=== PATIENT | female | born 1975 | race Hispanic/Latino ===

== ENCOUNTER 2021-03-02 18:52 | Emergency (ER) | payer BC ==
[~2021-03-02] VITALS: Ht 160 cm; Wt 76.3 kg
[2021-03-02 20:11] LABS: URINE BILIRUBIN - DIPSTICK NEGATIVE (NEGATIVE); URINE BLOOD DIPSTICK NEGATIVE (NEGATIVE); URINE COLOR YELLOW; URINE GLUCOSE - DIPSTICK NEGATIVE (NEGATIVE); URINE KETONE NEGATIVE (NEGATIVE); URINE LEUK ESTERASE NEGATIVE (NEGATIVE); URINE PROTEIN - DIPSTICK NEGATIVE (NEG-TRACE); URINE SPECIFIC GRAVITY 1.025
[2021-03-02 20:15] LABS: HEMATOCRIT 36.7 % (37.0-47.0); HEMOGLOBIN 12.1 g/dl (12.0-16.0); IMMATURE GRANULOCYTES 0.1 % (0.0-5.0); MEAN CELL VOLUME 89.5 fL CALC (80.0-100.0); MEAN CORPUSCULAR HGB 29.5 pG CALC (26.0-32.0); NEUT# 5.99 thou/uL (2.00-7.15); RED BLOOD COUNT 4.1 mill/uL (4.20-5.60); RED CELL DISTRI WIDTH 13.2 % (11.5-15.5)
[2021-03-02 20:27] LABS: URINE NITRITE - DIPSTICK NEGATIVE (Negative)
[2021-03-02 20:33] LABS: ALKALINE PHOSPHATASE 85 u/l (38-126); AMYLASE 86 u/l (30-110); ANION GAP 9 (6-22 (CALC)); BILIRUBIN, TOTAL 0.6 mg/dL (0.0-1.4); BUN 12 mg/dL (7-17); BUN/CREATININE RATIO 17 (12-20 (CALC)); CARBON DIOXIDE 28 mmol/l (22-30); CHLORIDE 104 mmol/l (95-108); CREATININE 0.7 mg/dL (0.5-1.0); GFR > 60 ML/MIN (>=60 (CALC)); GFR FOR AFR.AMER. > 60 ML/MIN (>=60 (CALC)); POTASSIUM 4.5 mmol/l (3.5-5.1); SGOT/AST 47 u/l (14-36); SODIUM 138 mmol/l (137-146); TOTAL PROTEIN 7.4 g/dL (6.3-8.2)
[2021-03-03] MEDS ORDERED: ULTRAM50 M1 PO (00:59)
[2021-03-03 01:00] VITALS: BP 117/60
== END 2021-03-03 01:18 | disposition home or self-care (01) | DRG 392 ==
LOC: ED 18:52
PROVIDERS: Emergency Medicine
DX: R10.2 Pelvic and perineal pain (principal); N83.202 Unspecified ovarian cyst, left side; N83.201 Unspecified ovarian cyst, right side
CPT/HCPCS: Q9967

== ENCOUNTER 2021-11-27 21:22 | Emergency (ER) | payer BC ==
[2021-11-27] VITALS (7 sets, daily range): BP systolic 72–153; BP diastolic 50–82
[~2021-11-27] VITALS: Ht 160 cm; Wt 70.9 kg
[~2021-11-27 21:22] MED LIST: ULTRAM50 M1 PO
[2021-11-27] MEDS ORDERED: TESSALON PERLE100 MG (21:31)
[2021-11-27 22:04] LABS: HEMATOCRIT 36.7 % (37.0-47.0); HEMOGLOBIN 12.2 g/dl (12.0-16.0); IMMATURE GRANULOCYTES 0.2 % (0.0-5.0); MEAN CELL VOLUME 85.5 fL CALC (80.0-100.0); MEAN CORPUSCULAR HGB 28.4 pG CALC (26.0-32.0); MEAN CORPUSCULAR HGB CONC 33.2 g/dL CAL (32.0-36.0); NEUT# 5.91 thou/uL (2.00-7.15); RED BLOOD COUNT 4.29 mill/uL (4.20-5.60); RED CELL DISTRI WIDTH 13.7 % (11.5-15.5)
== END 2021-11-27 22:53 | disposition home or self-care (01) | DRG 179 ==
LOC: ED 21:22
PROVIDERS: Family Medicine
DX: U07.1 COVID-19 (principal); J02.9 Acute pharyngitis, unspecified; R50.9 Fever, unspecified

== ENCOUNTER 2023-09-27 17:02 | Emergency (ER) | payer OTHER ==
[~2023-09-27] VITALS: Ht 160 cm; Wt 79.3 kg
[~2023-09-27 17:02] MED LIST changes: +TESSALON PERLE100 MG
[2023-09-27 17:15] VITALS: BP 140/60
[2023-09-27 17:30] VITALS: BP 132/67
[2023-09-27] MEDS ORDERED: predniSONE 20 MG/TAB PO ONE (17:40)
[2023-09-27] MEDS ORDERED: guaiFENesin-CODEINE 200-20 MG/10 ML UDC PO ONE (17:40)
[2023-09-27] MEDS ORDERED: NEBULIZER NEB (18:45)
[2023-09-27] MEDS ORDERED: IPRATROPIU0.5 MG/3 M IN (18:45)
[2023-09-27] MEDS ORDERED: BENZONATATE200 MG PO (18:45)
[2023-09-27] MEDS ORDERED: PREDNISONE50 MG PO (18:45)
[2023-09-27 19:09] VITALS: BP 132/67
== END 2023-09-27 19:15 | disposition home or self-care (01) | DRG 179 ==
LOC: ED 17:02
DX: U07.1 COVID-19 (principal); R06.02 Shortness of breath; R05.9 Cough, unspecified